=== PATIENT | male | born 1945 | race Caucasian/White ===

== ENCOUNTER 2024-05-30 09:29 | Emergency (ER) | payer OTHER, SELFPAY ==
[2024-05-30 09:30] VITALS: BP 155/80; PULSE 60; RESP 14; TEMP 36.6; O2SAT 96
[2024-05-30] MEDS: Balanced Salt Solution 15 ML BTL OP (09:56)
[2024-05-30] MEDS: Tetracaine 0.5% 4 ML BTL (09:57)
[2024-05-30] MEDS: Fluorescein STRIPS 100/BOX 1 MG OP (09:57)
--- NOTE | 2024-05-30 09:59 | ED.GENADUL_ITS ---
Discharge Plan Disposition Patient Disposition: Home Discharge Details Clinical Impression: Conjunctivitis Primary Care Provider: Unknown,Unknown ED Provider: Andrea Parra Home Meds and New Rx's Prescriptions: No Action sertraline 50 MG tablet 50 mg PO DAILY Qty: 90 Rx Instructions: 1/2 tablet daily for first 10 days, then full tablet daily Eliquis 5 MG tablet 5 mg PO BID Qty: 60 diltiazem HCl [Cardizem CD] 240 MG capsule,extended release 24hr 240 mg PO DAILY Qty: 90 tamsulosin [Flomax] 0.4 MG capsule 0.4 mg PO DAILY Qty: 90 Discharge Instructions Instructions: Conjunctivitis ([facility]) ED, How to Use Eye Drops and Eye Ointment ED Additional Instructions: Please use the provided ofloxacin eye drops and apply 2 drops to your left eye 4 times daily. If you have any new or significant worsening of symptoms feel free to return to the emergency department for reassessment It is recommended that you follow-up with an eye care provider in the next 24 to 48 hours for recheck of your symptoms and to see if you need any additional medications not available through the emergency department. Referrals: [facility] [Other] - 1 day (Please call the office this afternoon for arrangement of follow-up appointment tomorrow or Thursday) Discharge Data Discharge Date/Time-TO BE ENTERED AT DEPARTURE: 05/30/24 10:23 HPI General Mode of arrival: ambulatory . Date/Time Provider Initiated Documentation: 05/30/24 09:31 . Limitations to Documentation: no limitations . Information obtained by: patient and RN notes reviewed . History of Present Illness 78 year old M presents to the emergency department with the chief complaint of Left eye irritation and drainage, described as moderate, Patient started experiencing this day(s) (3) and it has been constant. No relieving factors improve symptom(s), Patient notes no other symptoms.. Patient did receive the following treatments prior to arrival, none Related Data Home Medications ?Medication ?Instructions ?Recorded ?Confirmed sertraline 50 mg tablet 50 mg PO DAILY #90 tab-caps 08/20/16 05/30/24 apixaban 5 mg tablet (Eliquis) 5 mg PO BID #60 tab-caps 01/09/17 05/30/24 diltiazem HCl 240 mg 240 mg PO DAILY ##90 01/09/17 05/30/24 capsule,extended release 24 hr (Cardizem CD) tamsulosin 0.4 mg capsule (Flomax) 0.4 mg PO DAILY ##90 01/09/17 05/30/24 Allergies Allergy/AdvReac Type Severity Reaction Status Date / Time atorvastatin AdvReac muscle Unverified 05/30/24 09:34 weakness Beta-Blockers AdvReac fatigue Unverified 05/30/24 09:34 (Beta-Adrenergic Bloc simvastatin AdvReac muscle Unverified 05/30/24 09:34 weakness General Stated Complaint: EyeProblem ANAYELI: 4 Review of Systems Eyes Eyes: Reports as per HPI, Denies change in vision, Reports eye discharge, Reports irritation, Reports eye pain and Reports photophobia Exam Const General: cooperative, no acute distress and not ill appearing Orientation: alert, awake and oriented x3 HENMT Mouth: moist mucous membranes Eyes Alignment and Position: alignment normal and position normal Periorbital: periorbital findings normal Eyelids: eyelids normal Conjunctivae: conjunctival abnormality left conjunctival injection diffuse Cornea: corneas normal and fluorescein used Pupils: PERRL EOM: EOM intact bilaterally Resp Effort & Inspection: normal respiratory effort, able to speak in complete sentences and no respiratory distress Skin General skin exam: no rashes or lesions noted Neuro General: patient alert, patient awake, patient oriented x3, moves all extremities and no focal motor deficits Course Vital Signs Vital signs: Vital Signs Temperature 36.6 C 05/30/24 09:30 Pulse 60 05/30/24 09:30 Respiratory Rate 14 05/30/24 09:30 Blood Pressure 155/80 H 05/30/24 09:30 Pulse Oximetry 96 05/30/24 09:30 Temperature 36.6 C 05/30/24 09:30 Temperature Source Temporal Artery Scan 05/30/24 09:30 Pulse 60 05/30/24 09:30 Respiratory Rate 14 05/30/24 09:30 Respiratory Effort Normal 05/30/24 09:34 Blood Pressure 155/80 H 05/30/24 09:30 Blood Pressure Position Sitting 05/30/24 09:30 Pulse Oximetry 96 05/30/24 09:30 Oxygen Delivery Method Room Air 05/30/24 09:30 Oxygen Flow Rate 0 05/30/24 09:30 Pain Level 10 05/30/24 09:30 Medical Decision Making Patient presenting to the emergency department for chief complaint of left eye irritation and drainage. Patient states he was weed whacking on Thursday and felt like he got something in his eye. All weekend his eyes been bothering him causing him to come in today for evaluation. Patient denies any other injury or trauma denies all other complaints. Physical exam shows significant conjunctival injection and irritation to the left eye with photophobia purulent drainage and significant erythema. Fluorescein was utilized and no abrasions were appreciated no foreign bodies noted within the eye. Eye was irrigated with small amount of saline. Even though no abrasions were noted I am concerned for abrasion versus infection. Given this we will place patient on ofloxacin and have patient follow-up with eye care provider within the next 24 to 48 hours for reassessment to ensure improvement of symptoms and/or potential need for ster oids given amount of erythema. Visual acuity was performed and is 20/70 in both eyes and 20/50 together. I feel this is reassuring that there is no visual differences at this time. After discussion of diagnosis and plan of care patient has no further needs, questions, or concerns and states clear understanding to return to the emergency department for any worsening symptoms. This documentation was generated using [employer] dictation system, please disregard any oddities of phrase or misspellings. Quality:SDOH Health Related Social Needs: No Data to Display PFSH All Active Problems Conjunctivitis (Acute) Urinary retention (Acute) wound (Acute) Leukocytosis (Acute) Constipation (Acute) Hypokalemia (Acute) Afib (Acute) Acute cholecystitis (Acute) Surgical History Rotator Cuff Repair (~07/2010) Colonoscopy - [facility] 2004 Cholecystectomy (12/05/15) Arthroscopy, Shoulder Appendectomy (10/07/16) laparascopic Family History Mother Diabetes Stroke Father Heart disease Brother Stroke Sister Neoplasm Sister Neoplasm Brother Diabetes Social History Smoking/Tobacco Use Status: Former Tobacco Use Smoking risk assessment performed?: Yes Alcohol Intake: never Drug use: Never Substance use type: does not use Do you feel safe in your relationship?: Yes
[2024-05-30 10:02] VITALS: BP 155/80; PULSE 60; RESP 14; TEMP 36.6; O2SAT 96
[2024-05-30 10:21] VITALS: BP 155/80; PULSE 60; RESP 14; TEMP 36.6; O2SAT 96
[2024-05-30] MEDS: Ofloxacin 0.3% OTIC 5 ML BTL AS (10:22)
== END 2024-05-30 10:23 | disposition home or self-care (01) ==
LOC: ER 10:53
PROVIDERS: Emergency Provider Nurse Practitioner Family
DX: H10.9 Unspecified conjunctivitis (principal); I48.91 Unspecified atrial fibrillation; Z79.01 Long term (current) use of anticoagulants; Z87.891 Personal history of nicotine dependence
CPT/HCPCS: 99283

== ENCOUNTER 2024-06-23 10:21 | Emergency (ER) | payer OTHER, SELFPAY ==
[2024-06-23 10:23] VITALS: BP 178/78; PULSE 93; RESP 16; TEMP 36.8; O2SAT 98
[2024-06-23 11:06] LABS: Bilirubin Negative (Negative); Blood Moderate (Negative); Clarity Clear (Clear); Glucose Negative (Negative); Ketones Negative (Negative); Leukocyte Esterase Negative (Negative); Nitrite Negative (Negative); Urobilinogen 0.2 mg/dL (Up to 0.2); pH 5.5 (5-8)
[2024-06-23 11:21] LABS: Bacteria Rare HPF (Negative); C & S Indicated? No; Casts Negative LPF (Negative); Crystals Negative HPF (Negative); Epithelial Cells Few HPF (Negative); Mucus Negative (Negative); WBC 0-2 HPF (0-5)
--- NOTE | 2024-06-23 11:28 | NUR.NOTE ---
Referral faxed to [facility] Urology for urinary retention, miller placed; early next week. Nursing Note:
[2024-06-23 12:01] VITALS: BP 137/92; PULSE 71; RESP 15; TEMP 36.8; O2SAT 94
--- NOTE | 2024-06-23 16:41 | ED.GENADUL_ITS ---
Discharge Plan Disposition Patient Disposition: Home Discharge Details Clinical Impression: Urinary retention Primary Care Provider: Unknown,Unknown ED Provider: Kenn Story Home Meds and New Rx's Prescriptions: No Action sertraline 50 MG tablet 50 mg PO DAILY Qty: 90 Rx Instructions: 1/2 tablet daily for first 10 days, then full tablet daily Eliquis 5 MG tablet 5 mg PO BID Qty: 60 diltiazem HCl [Cardizem CD] 240 MG capsule,extended release 24hr 240 mg PO DAILY Qty: 90 tamsulosin [Flomax] 0.4 MG capsule 0.4 mg PO DAILY Qty: 90 Discharge Instructions Instructions: How to Care for Your Suggs Catheter, Urinary Retention (DC) Additional Instructions: * Please continue your Flomax daily * Keep Suggs catheter in place until you follow-up with urology. a referral has been sent Referrals: Ankit Murphy MD [ [facility] STAFF PHYSICIAN] - (URINARY RETENTION, SUGGS PLACED ) Discharge Data Discharge Date/Time-TO BE ENTERED AT DEPARTURE: 06/23/24 12:08 HPI General Date/Time Provider Initiated Documentation: 06/23/24 10:31 . Limitations to Documentation: no limitations . Information obtained by: patient . HPI Narrative: 79-year-old gentleman with past medical history of prostate hypertrophy, A-fib on anticoagulant presents for evaluation of urinary retention. He states that he forgot to take his Flomax last night has not been able to urinate since last night. Reports some mild pain in his lower abdomen. Denies any fever or chills, has not had dysuria. Has had difficulty with urination in the past secondary to his prostate. Related Data Home Medications ?Medication ?Instructions ?Recorded ?Confirmed sertraline 50 mg tablet 50 mg PO DAILY #90 tab-caps 08/20/16 06/23/24 apixaban 5 mg tablet (Eliquis) 5 mg PO BID #60 tab-caps 01/09/17 06/23/24 diltiazem HCl 240 mg 240 mg PO DAILY ##90 01/09/17 06/23/24 capsule,extended release 24 hr (Cardizem CD) tamsulosin 0.4 mg capsule (Flomax) 0.4 mg PO DAILY ##90 01/09/17 06/23/24 Allergies Allergy/AdvReac Type Severity Reaction Status Date / Time atorvastatin AdvReac muscle Verified 06/23/24 10:27 weakness Beta-Blockers AdvReac fatigue Verified 06/23/24 10:27 (Beta-Adrenergic Bloc simvastatin AdvReac muscle Verified 06/23/24 10:27 weakness General Stated Complaint: Urinary ANAYELI: 3 Exam Narrative Exam Narrative: Review of Systems: All systems reviewed & are unremarkable except as noted in HPI and below Well-developed, no acute distress NCAT RRR Unlabored respiratory effort Mild suprapubic fullness Course Vital Signs Vital signs: Vital Signs Temperature 36.8 C 06/23/24 10:23 Pulse 93 H 06/23/24 10:23 Respiratory Rate 16 06/23/24 10:23 Blood Pressure 178/78 H 06/23/24 10:23 Pulse Oximetry 98 06/23/24 10:23 Temperature 36.8 C 06/23/24 12:01 Temperature Source Tympanic 06/23/24 12:01 Pulse 71 06/23/24 12:01 Respiratory Rate 15 06/23/24 12:01 Respiratory Effort Normal 06/23/24 10:28 Blood Pressure 137/92 H 06/23/24 12:01 Blood Pressure Position Sitting 06/23/24 10:23 Pulse Oximetry 94 06/23/24 12:01 Oxygen Delivery Method Room Air 06/23/24 12:01 Oxygen Flow Rate 0 06/23/24 12:01 Pain Level 0 06/23/24 12:01 Lab/Test Results Lab/Test Results: Laboratory Tests Range/Units 06/23/24 10:50 Urine Color (Yellow) Yellow Urine Clarity (Clear) Clear Urine pH (5-8) 5.5 Ur Specific [place] (1.005-1.025) 1.020 Urine Protein (Neg-Trace) mg/dL Negative Urine Ketones (Negative) mg/dL Negative Urine Blood (Negative) Moderate H Urine Nitrite (Negative) Negative Urine Bilirubin (Negative) Negative Urine Urobilinogen (Up to 0.2) mg/dL 0.2 Ur Leukocyte Esterase (Negative) Negative Urine RBC (0-2) HPF 10-20 H Urine WBC (0-5) HPF 0-2 Ur Epithelial Cells (Negative) HPF Few Urine Crystals (Negative) HPF Negative Urine Bacteria (Negative) HPF Rare Urine Casts (Negative) LPF Negative Urine Mucus (Negative) Negative Ur Culture Indicated? No Urine Glucose (Negative) mg/dL Negative Medical Decision Making Emergent evaluation of urinary retention. Patient had almost 1000 cc noted on bladder scan. Has history of prostatic hypertrophy and did not take his Flomax last night. Was urinating up until that point. Suggs catheter was placed with resolution of symptoms. Advised to continue Flomax, instructions on keeping the Suggs in and using a leg bag were provided. Referred to urology for follow-up. Return precautions advised. Quality:SDOH Health Related Social Needs: No Data to Display PFSH All Active Problems Conjunctivitis (Acute) Urinary retention (Acute) wound (Acute) Leukocytosis (Acute) Constipation (Acute) Hypokalemia (Acute) Afib (Acute) Acute cholecystitis (Acute) Surgical History Rotator Cuff Repair (~07/2010) Colonoscopy - [facility] 2003 Cholecystectomy (12/05/15) Arthroscopy, Shoulder Appendectomy (10/07/16) laparascopic Family History Mother Diabetes Stroke Father Heart disease Brother Stroke Sister Neoplasm Sister Neoplasm Brother Diabetes Social History Smoking/Tobacco Use Status: Former Tobacco Use Smoking risk assessment performed?: Yes Alcohol Intake: never Drug use: Never Substance use type: does not use Do you feel safe in your relationship?: Yes
== END 2024-06-23 12:08 | disposition home or self-care (01) ==
PROVIDERS: Emergency Provider Emergency Medicine
DX: N40.1 Benign prostatic hyperplasia with lower urinary tract symptoms (principal); R33.9 Retention of urine, unspecified; I48.91 Unspecified atrial fibrillation; Z79.01 Long term (current) use of anticoagulants; Z87.891 Personal history of nicotine dependence
CPT/HCPCS: 99284; 81003; 81015

== ENCOUNTER 2024-06-23 17:37 | Emergency (ER) | payer OTHER, SELFPAY ==
[2024-06-23 17:37] VITALS: BP 167/95; PULSE 99; RESP 16; TEMP 36.2; O2SAT 95
--- NOTE | 2024-06-23 18:05 | ED.GENADUL_ITS ---
Discharge Plan Disposition Patient Disposition: Home Condition: Stable Discharge Details Clinical Impression: Urinary retention Primary Care Provider: Unknown,Unknown ED Provider: Kenn Story Home Meds and New Rx's Prescriptions: No Action sertraline 50 MG tablet 50 mg PO DAILY Qty: 90 Rx Instructions: 1/2 tablet daily for first 10 days, then full tablet daily Eliquis 5 MG tablet 5 mg PO BID Qty: 60 diltiazem HCl [Cardizem CD] 240 MG capsule,extended release 24hr 240 mg PO DAILY Qty: 90 tamsulosin [Flomax] 0.4 MG capsule 0.4 mg PO DAILY Qty: 90 Discharge Instructions Instructions: Urinary Retention (DC) Additional Instructions: continue miller care return if not draining urine or you develop severe pain Discharge Data Discharge Date/Time-TO BE ENTERED AT DEPARTURE: 06/23/24 18:11 HPI General Date/Time Provider Initiated Documentation: 06/23/24 17:48 . Limitations to Documentation: no limitations . Information obtained by: patient . HPI Narrative: 79Y M with PMG of prostatic hypertrophy and recent urinary retention s/p miller cath placement. returns for re-evaluation of his miller catheter. Patient was reporting some discomfort within the penis. No pain. He states that he was worried about the discoloration noted in the Miller catheter bag. He has noted dark urine without any bright red bleeding or clots. Denies any pain in his abdomen. States that the Miller catheter is still draining. He just was not sure if this is all normal. Related Data Home Medications ?Medication ?Instructions ?Recorded ?Confirmed sertraline 50 mg tablet 50 mg PO DAILY #90 tab-caps 08/20/16 06/23/24 apixaban 5 mg tablet (Eliquis) 5 mg PO BID #60 tab-caps 01/09/17 06/23/24 diltiazem HCl 240 mg 240 mg PO DAILY ##90 01/09/17 06/23/24 capsule,extended release 24 hr (Cardizem CD) tamsulosin 0.4 mg capsule (Flomax) 0.4 mg PO DAILY ##90 01/09/17 06/23/24 Allergies Allergy/AdvReac Type Severity Reaction Status Date / Time atorvastatin AdvReac muscle Verified 06/23/24 17:43 weakness Beta-Blockers AdvReac fatigue Verified 06/23/24 17:43 (Beta-Adrenergic Bloc simvastatin AdvReac muscle Verified 06/23/24 17:43 weakness General Stated Complaint: Urinary ANAYELI: 5 Exam Narrative Exam Narrative: Review of Systems: All systems reviewed & are unremarkable except as noted in HPI and below Well-developed, no acute distress Unlabored respiratory effort Nondistended abdomen , nontender Miller catheter bag with some dark-colored urine, no bright red or clot Course Vital Signs Vital signs: Vital Signs Temperature 36.2 C L 06/23/24 17:37 Pulse 99 H 06/23/24 17:37 Respiratory Rate 16 06/23/24 17:37 Blood Pressure 167/95 H 06/23/24 17:37 Pulse Oximetry 95 06/23/24 17:37 Temperature 36.2 C L 06/23/24 17:37 Pulse 99 H 06/23/24 17:37 Respiratory Rate 16 06/23/24 17:37 Respiratory Effort Normal 06/23/24 17:42 Blood Pressure 167/95 H 06/23/24 17:37 Blood Pressure Position Sitting 06/23/24 17:37 Pulse Oximetry 95 06/23/24 17:37 Oxygen Delivery Method Room Air 06/23/24 17:37 Oxygen Flow Rate 0 06/23/24 17:37 Pain Level 8 06/23/24 17:37 Medical Decision Making Emergent evaluation for Miller catheter. Miller catheter in place, not dislodged, flowing well. Patient did have blood in his urine earlier, but is not having any bright red bleeding or concerns for ongoing hemorrhage. Patient reassured and discharged with same plan in place. Quality:SDOH Health Related Social Needs: No Data to Display PFSH All Active Problems Conjunctivitis (Acute) Urinary retention (Acute) wound (Acute) Leukocytosis (Acute) Constipation (Acute) Hypokalemia (Acute) Afib (Acute) Acute cholecystitis (Acute) Surgical History Rotator Cuff Repair (~07/2010) Colonoscopy - [facility] 2004 Cholecystectomy (12/05/15) Arthroscopy, Shoulder Appendectomy (10/07/16) laparascopic Family History Mother Diabetes Stroke Father Heart disease Brother Stroke Sister Neoplasm Sister Neoplasm Brother Diabetes Social History Smoking/Tobacco Use Status: Former Tobacco Use Smoking risk assessment performed?: Yes Alcohol Intake: never Drug use: Never Substance use type: does not use Do you feel safe in your relationship?: Yes
== END 2024-06-23 18:11 | disposition home or self-care (01) ==
LOC: ER 18:43
PROVIDERS: Emergency Provider Emergency Medicine
DX: T83.84XA Pain due to genitourinary prosthetic devices, implants and grafts, initial encounter (principal); N40.1 Benign prostatic hyperplasia with lower urinary tract symptoms; R33.8 Other retention of urine; Z87.891 Personal history of nicotine dependence
CPT/HCPCS: 99283

== ENCOUNTER 2024-09-07 05:14 | Emergency (ER) | payer OTHER, SELFPAY ==
[2024-09-07 05:18] VITALS: BP 169/85; PULSE 68; RESP 16; TEMP 36.6; O2SAT 99
--- NOTE | 2024-09-07 05:25 | ED.GENADUL_ITS ---
Discharge Plan Disposition Patient Disposition: Home Condition: Good Discharge Details Clinical Impression: Benign prostatic hyperplasia with urinary retention, Encounter for Miller catheter replacement Primary Care Provider: Unknown,Unknown ED Provider: Shasha Butcher Home Meds and New Rx's Prescriptions: Continued sertraline 50 MG tablet 50 mg PO DAILY Qty: 90 Rx Instructions: 1/2 tablet daily for first 10 days, then full tablet daily Eliquis 5 MG tablet 5 mg PO BID Qty: 60 diltiazem HCl [Cardizem CD] 240 MG capsule,extended release 24hr 240 mg PO DAILY Qty: 90 tamsulosin [Flomax] 0.4 MG capsule 0.4 mg PO DAILY Qty: 90 Discharge Instructions Instructions: How to Care for Your Miller Catheter, Urinary Retention (DC) Additional Instructions: Call your urologist today to schedule an appointment for within one week to followup on your visit here. Return to the emergency department for new or worsening symptoms including fever, abdominal pain, if your catheter is not draining, or if your catheter becomes dislodged and you are not able to urinate. HPI General Mode of arrival: ambulatory . Date/Time Provider Initiated Documentation: 09/07/24 05:22 . Limitations to Documentation: no limitations . Information obtained by: patient . HPI Narrative: 79yo M with hx BPH, urinary retention in the past requiring miller, presenting with urinary retention. Unable to void more than 'squirts' for 24 hours. Suprapubic pain and pressure. Otherwise in his usual state of health with no fevers, chills, rash, back pain, numbness, tingling, weakness, or other concerns. Related Data Home Medications ?Medication ?Instructions ?Recorded ?Confirmed sertraline 50 mg tablet 50 mg PO DAILY #90 tab-caps 08/20/16 09/07/24 apixaban 5 mg tablet (Eliquis) 5 mg PO BID #60 tab-caps 01/09/17 09/07/24 diltiazem HCl 240 mg 240 mg PO DAILY ##90 01/09/17 09/07/24 capsule,extended release 24 hr (Cardizem CD) tamsulosin 0.4 mg capsule (Flomax) 0.4 mg PO DAILY ##90 01/09/17 09/07/24 Allergies Allergy/AdvReac Type Severity Reaction Status Date / Time atorvastatin AdvReac muscle Verified 09/07/24 05:23 weakness Beta-Blockers AdvReac fatigue Verified 09/07/24 05:23 (Beta-Adrenergic Bloc simvastatin AdvReac muscle Verified 09/07/24 05:23 weakness General Stated Complaint: Urinary ANAYELI: 3 Review of Systems Narrative: see HPI Exam Narrative Exam Narrative: General: Alert, well appearing, well nourished, in no acute distress. Head: Normocephalic, atraumatic Neck: Trachea midline, ?Neck supple. Cardiac: ?No cyanosis. Resp: No respiratory distress. Speaking in full sentences. . Abd: ?Soft, nontender : ?Suprapubic fullness and tenderness. Extremities: ?No deformities.? No peripheral edema. Neurologic: GCS 15. ? Moves all extremities freely against gravity. Sensation to light touch intact BLE including saddle region. Course Vital Signs Vital signs: Vital Signs Temperature 36.6 C 09/07/24 05:18 Pulse 68 09/07/24 05:18 Respiratory Rate 16 09/07/24 05:18 Blood Pressure 169/85 H 09/07/24 05:18 Pulse Oximetry 99 09/07/24 05:18 Temperature 36.6 C 09/07/24 05:18 Temperature Source Temporal Artery Scan 09/07/24 05:18 Pulse 68 09/07/24 05:18 Respiratory Rate 16 09/07/24 05:18 Respiratory Effort Normal 09/07/24 05:20 Blood Pressure 169/85 H 09/07/24 05:18 Blood Pressure Position Supine 09/07/24 05:18 Pulse Oximetry 99 09/07/24 05:18 Oxygen Delivery Method Room Air 09/07/24 05:18 Oxygen Flow Rate 0 09/07/24 05:18 Pain Level 10 09/07/24 05:18 Medical Decision Making 79yo M with hx BPH, urinary retention in the past requiring miller, presenting with urinary retention. Has had similar episodes in the past which required catheter placement. No neurologic symptoms, no back pain. Hypertensive on ar rival, vital signs otherwise reassuring. Normal neurologic exam, no saddle anesthesia. Not concerned for cord compression or other neurologic process; no indication for labs or CT/MRI imaging. Bladder scan for ~850cc. Miller placed- inital attempt unsucessful, required coude which was placed and ~800cc urine obtained. UA not infected. Some blood, likely 2/t to catheter insertion/multiple attempts. Discharged home with indwelling miller to followup with urology. Discharge instructions and return precautions were reviewed with patient who verbalized understanding. All questions were answered and he is in full agreement with the plan Lab Data Lab results reviewed: Yes I reviewed the patient's lab results. Labs: Laboratory Tests Range/Units 09/07/24 05:30 Urine Color (Yellow) Yellow Urine Clarity (Clear) Sl Cloudy Urine pH (5-8) 5.5 Ur Specific [place] (1.005-1.025) 1.025 Urine Protein (Neg-Trace) mg/dL 100 H Urine Ketones (Negative) mg/dL Negative Urine Blood (Negative) Large H Urine Nitrite (Negative) Negative Urine Bilirubin (Negative) Negative Urine Urobilinogen (Up to 0.2) mg/dL 0.2 Ur Leukocyte Esterase (Negative) Negative Urine RBC (0-2) HPF >50 H Urine WBC (0-5) HPF 5-10 Ur Epithelial Cells (Negative) HPF Negative Urine Crystals (Negative) HPF Negative Urine Bacteria (Negative) HPF Few Urine Casts (Negative) LPF Negative Urine Mucus (Negative) Moderate Urine Other (Negative) Rare Renal Ur Culture Indicated? No Urine Glucose (Negative) mg/dL Negative Quality:SDOH Health Related Social Needs: No Data to Display PFSH All Active Problems (Updated 09/07/24 @ 05:33 by Shasha Butcher MD) Encounter for Miller catheter replacement (Acute) Benign prostatic hyperplasia with urinary retention (Acute) Urinary retention (Acute) wound (Acute) Leukocytosis (Acute) Constipation (Acute) Hypokalemia (Acute) Afib (Acute) Acute cholecystitis (Acute) Surgical History Rotator Cuff Repair (~07/2010) Colonoscopy - [facility] 2004 Cholecystectomy (12/05/15) Arthroscopy, Shoulder Appendectomy (10/07/16) laparascopic Family History Mother Diabetes Stroke Father Heart disease Brother Stroke Sister Neoplasm Sister Neoplasm Brother Diabetes Social History Smoking/Tobacco Use Status: Former Tobacco Use Smoking risk assessment performed?: Yes Alcohol Intake: never Drug use: Never Substance use type: does not use Do you feel safe in your relationship?: Yes
[2024-09-07 05:50] LABS: Bilirubin Negative (Negative); Blood Large (Negative); Clarity Sl Cloudy (Clear); Glucose Negative (Negative); Ketones Negative (Negative); Leukocyte Esterase Negative (Negative); Nitrite Negative (Negative); Specific Gravity 1.025 (1.005-1.025); Urobilinogen 0.2 mg/dL (Up to 0.2); pH 5.5 (5-8)
[2024-09-07 06:00] LABS: Bacteria Few HPF (Negative); C & S Indicated? No; Casts Negative LPF (Negative); Crystals Negative HPF (Negative); Epithelial Cells Negative HPF (Negative); Mucus Moderate (Negative); Other Cells Rare Renal (Negative); RBC >50 HPF (0-2)
[2024-09-07 06:04] VITALS: BP 152/72; PULSE 72; RESP 16; O2SAT 99
== END 2024-09-07 06:10 | disposition home or self-care (01) ==
PROVIDERS: Emergency Provider Student in an Organized Health Care Education/Training Program
DX: N40.1 Benign prostatic hyperplasia with lower urinary tract symptoms (principal); R33.8 Other retention of urine; I48.91 Unspecified atrial fibrillation; Z79.01 Long term (current) use of anticoagulants; Z87.891 Personal history of nicotine dependence
CPT/HCPCS: 99283; 81003; 81015

== ENCOUNTER 2024-10-20 12:54 | Emergency (ER) | payer OTHER, SELFPAY ==
[2024-10-20 12:57] VITALS: BP 129/73; PULSE 80; RESP 14; TEMP 36.3; O2SAT 94
[2024-10-20 13:02] VITALS: O2SAT 94
[2024-10-20] MEDS: Lidocaine 2% Jelly 11 ML SYR UR (13:35)
[2024-10-20 14:06] LABS: Bilirubin Negative (Negative); Blood Small (Negative); Clarity Cloudy (Clear); Glucose Negative (Negative); Ketones Negative (Negative); Leukocyte Esterase Moderate (Negative); Nitrite Positive (Negative); Specific Gravity 1.025 (1.005-1.025); Urobilinogen 0.2 mg/dL (Up to 0.2)
[2024-10-20 14:14] LABS: C & S Indicated? Yes; WBC >50 HPF (0-5)
--- NOTE | 2024-10-21 22:36 | ED.GENADUL_ITS ---
Discharge Plan Disposition Patient Disposition: Home Condition: Stable Discharge Details Clinical Impression: Acute UTI Primary Care Provider: [facility],[place] ED Provider: Ariela Vergara Home Meds and New Rx's Prescriptions: New cefuroxime axetil 500 mg tablet 500 mg PO BID Qty: 20 0RF Continued sertraline 50 MG tablet 50 mg PO DAILY Qty: 90 Rx Instructions: 1/2 tablet daily for first 10 days, then full tablet daily Eliquis 5 MG tablet 5 mg PO BID Qty: 60 diltiazem HCl [Cardizem CD] 240 MG capsule,extended release 24hr 240 mg PO DAILY Qty: 90 tamsulosin [Flomax] 0.4 MG capsule 0.4 mg PO DAILY Qty: 90 Discharge Instructions Instructions: Urinary Tract Infection, Adult ED Additional Instructions: Take antibiotic as prescribed, yogurt daily while on antibiotic increased fluids follow-up with pcp and urologist this week return with fever, chills, worsening pain, or should you have new or worsening complaints Referrals: [facility] [Primary Care Provider] - Discharge Data Discharge Date/Time-TO BE ENTERED AT DEPARTURE: 10/20/24 14:45 HPI General Date/Time Provider Initiated Documentation: 10/20/24 13:07 . HPI Narrative: This 79-year-old male presents with urinary frequency, burning, and feeling of retention. States he has had recurrent catheters in the past. Denies any flank pain, fever chills or weakness. Has a known bladder stone, scheduled for surgery at [facility]. Denies any additional complaints at this time. Denies any nausea or vomiting. Related Data Home Medications ?Medication ?Instructions ?Recorded ?Confirmed sertraline 50 mg tablet 50 mg PO DAILY #90 tab-caps 08/20/16 10/20/24 apixaban 5 mg tablet (Eliquis) 5 mg PO BID #60 tab-caps 01/09/17 10/20/24 diltiazem HCl 240 mg 240 mg PO DAILY ##90 01/09/17 10/20/24 capsule,extended release 24 hr (Cardizem CD) tamsulosin 0.4 mg capsule (Flomax) 0.4 mg PO DAILY ##90 01/09/17 10/20/24 cefuroxime axetil 500 mg tablet 500 mg PO BID #20 tabs 10/20/24 Previous Rx's ?Medication ?Instructions ?Recorded cefuroxime axetil 500 mg tablet 500 mg PO BID #20 tabs 10/20/24 Allergies Allergy/AdvReac Type Severity Reaction Status Date / Time atorvastatin AdvReac muscle Verified 10/20/24 13:04 weakness Beta-Blockers AdvReac fatigue Verified 10/20/24 13:04 (Beta-Adrenergic Bloc simvastatin AdvReac muscle Verified 10/20/24 13:04 weakness General Stated Complaint: Urinary ANAYELI: 4 Exam Narrative Exam Narrative: Alert and oriented 79-year-old male in no acute distress. Mild suprapubic tenderness, no CVA tenderness, cardiac rate rhythm regular Course Vital Signs Vital signs: Vital Signs Temperature 36.3 C L 10/20/24 12:57 Pulse 80 10/20/24 12:57 Respiratory Rate 14 10/20/24 12:57 Blood Pressure 129/73 10/20/24 12:57 Pulse Oximetry 94 10/20/24 12:57 Temperature 36.3 C L 10/20/24 12:57 Temperature Source Oral 10/20/24 12:57 Pulse 80 10/20/24 12:57 Respiratory Rate 14 10/20/24 12:57 Blood Pressure 129/73 10/20/24 12:57 Blood Pressure Position Sitting 10/20/24 12:57 Pulse Oximetry 94 10/20/24 13:02 Oxygen Delivery Method Room Air 10/20/24 13:02 Oxygen Flow Rate 0 10/20/24 12:57 Pain Level 5 10/20/24 13:20 Lab/Test Results Lab/Test Results: 10/20/24 13:44 Urine - Reflex from Ua Urine Culture - Preliminary Gram Negative [facility] Laboratory Tests Range/Units 10/20/24 13:44 Urine Color (Yellow) Yellow Urine Clarity (Clear) Cloudy Urine pH (5-8) 7.0 Ur Specific [place] (1.005-1.025) 1.025 Urine Protein (Neg-Trace) mg/dL >=300 H Urine Ketones (Negative) mg/dL Negative Urine Blood (Negative) Small H Urine Nitrite (Negative) Positive H Urine Bilirubin (Negative) Negative Urine Urobilinogen (Up to 0.2) mg/dL 0.2 Ur Leukocyte Esterase (Negative) Moderate H Urine RBC Not Applicable Urine WBC (0-5) HPF >50 H Ur Epithelial Cells Not Applicable Urine Crystals Not Applicable Urine Bacteria Not Applicable Urine Mucus Not Applicable Ur Culture Indicated? Yes Urine Glucose (Negative) mg/dL Negative Medical Decision Making 79-year-old male presenting in no acute distress, urinalysis was obtained after bladder scan and Hernandez catheter placement. Patient had approximately 880 cc in his bladder, he was given the option of Hernandez catheter placement and he would like us to place a Hernandez catheter at this time. Urinalysis was obtained from Hernandez catheter specimen patient had greater than 50 white blood cells. I will start patient on 10-day supply of cefuroxime. He is pending urine culture at this time. Patient is nontoxic without evidence of pyelonephritis at time of my assessment. I have low suspicion clinically for ureterolithiasis. Return precautions reviewed, patient expressed understanding Quality:SDOH Health Related Social Needs: No Data to Display PFSH All Active Problems (Updated 10/20/24 @ 14:21 by JOHNNIE Britton) Acute UTI (Acute) Urinary retention (Acute) wound (Acute) Leukocytosis (Acute) Constipation (Acute) Hypokalemia (Acute) Afib (Acute) Acute cholecystitis (Acute) Surgical History Rotator Cuff Repair (~07/2010) [place] [facility] [place]olecystectomy (12/05/15) Arthroscopy, Shoulder Appendectomy (10/07/16) laparascopic Family History Mother Diabetes Stroke Father Heart disease Brother Stroke Sister Neoplasm Sister Neoplasm Brother Diabetes Social History Smoking/Tobacco Use Status: Former Tobacco Use Smoking risk assessment performed?: Yes Alcohol Intake: never Drug use: Never Substance use type: does not use Housing: house Do you feel safe at home: Yes Do you feel safe in your relationship?: Yes
== END 2024-10-20 14:45 | disposition home or self-care (01) ==
PROVIDERS: Emergency Provider Physician Assistant
DX: N39.0 Urinary tract infection, site not specified; N21.0 Calculus in bladder
CPT/HCPCS: 87077; 99283; 81003; 81015; 87086; 87186; 99284